=== PATIENT | female | born 1975 | race Caucasian/White ===

== ENCOUNTER → 2016-12-09 | Outpatient (CLI) | payer OTHER | LOC: FIMAGING 13:43 | PROVIDERS: ATTEND Orthopaedic Surgery | DX: S83.511A Sprain of anterior cruciate ligament of right knee, initial encounter (principal); S83.241A Other tear of medial meniscus, current injury, right knee, initial encounter; S83.421A Sprain of lateral collateral ligament of right knee, initial encounter ==

== ENCOUNTER 2016-12-27 05:50 | Day surgery (SDC) | payer OTHER ==
--- NOTE | 2016-12-26 20:04 | GHP ---
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 The knee felt stiff and swollen. She has had episodes of instability. She is a very active individual. She jumps hor ses. She enjoys skiing and yoga. Has a young child. She has had an MRI of the knee that shows a t ear of the ACL. There is a vertical longitudinal tear, posterior horn medial meniscus and a lateral collateral strain. She is an active individual who wishes to continue pivoting activities, so she has elected to undergo an ACL reconstruction. After discussion of graft choices, has chosen the pat ellar tendon allograft. PAST MEDICAL HISTORY: She has no current medical problems. No prior surgeries. She is taking no p rescription medications. ALLERGIES: She has no known drug allergies. SOCIAL HISTORY: She is a nonsmoker. REVIEW OF SYSTEMS: Negative for cardiopulmonary disease. PHYSICAL EXAMINATION: GENERAL: The patient is a well-developed, well-nourished female in no appare nt distress. HEAD AND NECK: Normocephalic, atraumatic. CHEST: Clear. CARDIOVASCULAR: Regular r ate and rhythm. ABDOMEN: Soft. NEUROLOGIC: Alert and oriented x3. EXTREMITIES: Examination of her right knee shows that she is very flexible. She hyperextends her knees. Rimma's test and ant erior drawer test are positive with a very soft end point. She has a good PCL end point. Collatera ls are stable. Mild posterolateral joint line tenderness. Mildly positive lateral Yifan test. She has a small effusion. Neurovascular exam is intact. SKIN: Intact. IMPRESSION: Right knee anterior cruciate ligament rupture, medial meniscal tear. PLAN: Right knee arthroscopy, cartilage work as needed, including potential meniscal repair or trim , ACL reconstruction with patellar tendon allograft and screw fixation. Benefits and risks of surge ry have been reviewed. She has signed her consent form, wishes to proceed. /[id number]/MODL
[2016-12-27] MEDS ORDERED: LIDOCAINE 1% 2 ML INJ ONE (06:19)
[2016-12-27] MEDS ORDERED: LR 1,000 ML IV ONE (06:25)
[2016-12-27] MEDS ORDERED: POLYMYXIN B SULFATE 500,000 UNIT/10 ML SYR IRR ONE (06:50)
[2016-12-27] MEDS ORDERED: BUPIVACAINE 0.5% 30 ML SDV ONE (06:50)
[2016-12-27] MEDS ORDERED: BACITRACIN 50,000 UNITS/10 ML SYR IRR ONE (06:50)
[2016-12-27] MEDS ORDERED: BUPIVACAINE/EPI 0.5% 30 ML SDV ONE (06:50)
[2016-12-27] MEDS ORDERED: CHLORHEXIDINE GLUC HIBICLENS 118 ML BTL TP ONE (07:00)
[2016-12-27] MEDS ORDERED: CEFAZOLIN 2 GM/DEXTR 100 ML IV ONE (07:00)
[2016-12-27] MEDS ORDERED: MIDAZOLAM 2 MG/2 ML VIAL ONE (07:08)
[2016-12-27] MEDS ORDERED: SCOPOLAMINE HYDROBROMIDE 1.5 MG PATCH TD ONE (07:10)
[2016-12-27] MEDS ORDERED: fentaNYL 250 MCG/5 ML INJ ONE (07:14)
[2016-12-27] MEDS ORDERED: PROPOFOL/EMULSION 500 MG/50 ML BOTTLE IV ONE ×2 (07:14→08:43)
[2016-12-27] MEDS ORDERED: KETOROLAC 30 MG/1 ML SDV ONE (09:08)
[2016-12-27] MEDS ORDERED: DEXAMETHASONE 4 MG/ML VIAL ONE (09:08)
[2016-12-27] MEDS ORDERED: morphINE PF 10 MG/10 ML INJ ONE (09:16)
[2016-12-27] MEDS ORDERED: clonIDINE 1 MG/10 ML VIAL EP ONE (09:23)
[2016-12-27] MEDS ORDERED: ROPIVACAINE HCL 150 MG/30 ML INJ ONE (09:23)
[2016-12-27] MEDS ORDERED: HYDROCODONE/APAP 5/325 TAB ONE (10:59)
--- NOTE | 2016-12-27 11:35 | GOP ---
[f rep st] OPERATIVE REPORT DATE OF OPERATION: 12/27/2016 SURGEON: Aj Logan MD CRANE OILER: Melo Charles, [facility], A ANESTHESIOLOGIST: Elias Garay MD PREOPERATIVE DIAGNOSIS: Right knee anterior cruciate ligament rupture, medial meniscal tear, latera l compartment bone contusions. POSTOPERATIVE DIAGNOSIS: Right knee anterior cruciate ligament rupture, medial meniscal tear, later al compartment bone contusions. PROCEDURE PERFORMED: Right knee arthroscopy, medial meniscal repair, ACL reconstruction with patell ar tendon allograft. FINDINGS: An exam under anesthesia demonstrates a positive Rimma's, positive anterior drawer, pos itive pivot shift. On arthroscopy, the patella femoral articulation is intact. In the notch, the A CL fibers are torn, the PCL fibers are intact. In the medial compartment, the articular surfaces ar e intact, and there is a peripheral posterior horn medial meniscal tear. It is quite peripheral, ju st inboard of the meniscocapsular junction. The meniscus is in good shape. It is about a 1.5 cm lo ng or so. It is amenable to repair. The lateral compartment had intact articular meniscal cartilag e. 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 She presents with history, exam, and an MRI consistent with an ACL rupt ure. She does have a peripheral posterior horn medial meniscal tear in a repairable looking zone, a nd there are some minor lateral compartment bone contusions. She is an active individual, wishes to continue pivoting activities, so she has elected to undergo an ACL reconstruction. We have discuss ed graft choice and we will use a patellar tendon allograft. DESCRIPTION OF PROCEDURE: The patient was taken to the operating room, placed supine on the operati ng table, and an adductor block was supplied under ultrasound guidance by Dr. Garay. She was the n placed under general anesthetic with laryngeal mask ventilation. She received 2 g of IV Ancef. A tourniquet was fit high on the right thigh. Right thigh was put in a leg cedeno. The knee was pre pped and draped in usual fashion. Standard arthroscopy portals were used and the entire knee was in spected with the above-noted findings. I prepared the meniscus using a rotary shaver and a meniscal rasp largely on the undersurface; the meniscus could be displaced in board a little bit. I made a posteromedial exposure through about a 3 cm incision, dissected through subcutaneous tissue, and I d issected onto the posterior aspect of the posteromedial knee. I used the zone-specific Arthrex kofi ulas to pass meniscal needles, 2-0 FiberWire, I used 2 vertical mattress sutures passed through the cannula and captured in the posteromedial incision. These nicely reduced the meniscus. They were t ied down with multiple knots. The suture through the surface of the meniscus was flush. This looke d like a good repair. I then did a notchplasty, enlarging the lateral wall and roof of the notch, u ntil the [id number] position was clearly visualized. With my assistant strength coach's help, I prepared an exce llent quality younger male allograft, used about 10 mm slip of tendon, and we fashioned 10 mm bone p lug, each threaded with suture. I made a small incision just medial to the tibial tubercle. I manfred tavares the periosteal surface with an elevator. I used a 3M Guide at 75 degrees to past a guide pin, e merging in the anatomic footprint of the ACL on the tibial plateau. This was then reamed to 10 mm a nd I used a rasp to smooth the back edge of this tunnel. The tunnel looked anatomic. Through a dis darcy lateral femoral incision and the guide set at 120 degrees, I passed a guide pin, emerging immedi ately had of the [id number] position at the junction of the lateral wall and roof of the notch, an d this was reamed to 10 mm. The graft was pulled through the tibia into the femur and secured proxi addie with an 8 x 23 cannulated absorbable screw. With the knee slightly flexed and some tension on the graft, I secured the distal bone plug with a 9 x 23 cannulated absorbable screw, again with exc ellent bone purchase. The graft had appropriate tension, it nicely cleared the lateral wall and nichol f, it allowed full extension, provided a negative Rimma test. All incisions were antibiotic irrig ated. The IT band was closed with 2-0 Monocryl, subcu tissue and all wounds with 3-0 Monocryl, and the skin with 4-0 Prolene interrupted horizontal mattress sutures. I placed 20 cc of 0.5% plain Mar rangel with 10 mg of Duramorph in the joint. The portals were closed with 4-0 Prolene. The wounds w ere dressed with Betadine-soaked Adaptic, 4 x 4's, sterile Webril, and a long-leg MAYANK stocking. The re were no complications. The estimated blood loss was minimal. There were no drains, no specimens , all counts correct, and the patient was taken in stable condition to recovery. My tourniquet time was 70 minutes. My director medical surgical was a medical necessity for graft preparation, leg positioni ng, soft tissue retraction. /[id number]/MODL
== END 2016-12-27 12:20 | disposition home health service (06) ==
LOC: FSGY 05:50
PROVIDERS: ATTEND Orthopaedic Surgery
DX: S83.511D Sprain of anterior cruciate ligament of right knee, subsequent encounter (principal); S83.241D Other tear of medial meniscus, current injury, right knee, subsequent encounter
CPT/HCPCS: C1713; C1762; J0690; J0735; J1100; J1885; J2250; J2274; J2704; J2795; J3010

== ENCOUNTER 2017-10-22 09:12 | Day surgery (SDC) | payer OTHER ==
[2017-10-22] MEDS ORDERED: LIDOCAINE 1% 2 ML INJ ID PRN (09:22)
[2017-10-22] MEDS ORDERED: LR 1,000 ML IV ONE (09:22)
[2017-10-22] MEDS ORDERED: BUPIVACAINE 0.5% 30 ML SDV ONE (09:32)
--- NOTE | 2017-10-22 09:54 | PDANEPAE ---
ANE Past Medical History - Cardiovascular History Hx Hypertension: No Hx Arrhythmias: No Hx Chest Pain: No Hx Coronary Artery / Peripheral Vascular Disease: No Hx CHF / Valvular Disease: No Hx Palpitations: No - Pulmonary History Hx COPD: No Hx Asthma/Reactive Airway Disease: No Hx Recent Upper Respiratory Infection: No Hx Oxygen in Use at Home: No Hx Sleep Apnea: No Sleep Apnea Screening Result - Last Documented: Negative - Neurologic History Hx Cerebrovascular Accident: No Hx Seizures: No Hx Dementia: No - Endocrine History Hx Diabetes: No - Renal History Hx Renal Disorders: No - Liver History Hx Hepatic Disorders: No - Neurological & Psychiatric Hx Hx Neurological and Psychiatric Disorders: No - Cancer History Hx Cancer: No - Congenital Disorder History Hx Congenital Disorders: No - GI History Hx Gastrointestinal Disorders: No - Other Health History Other Health History: FELL OFF HORSE 10/09/2017 RESULTING IN FX - Chronic Pain History Chronic Pain: No - Surgical History Prior Surgeries: RT ACL REPAIR 11/2016 ANE Review of Systems Review of Systems: - Exercise capacity METS (RN): 6 METS ANE Patient History - Allergies Allergies/Adverse Reactions: No Known Allergies Allergy (Unverified 12/13/16 14:06) - Home Medications Home Medications: NK [No Known Home Meds] 12/13/16 [Last Taken Unknown] - Smoking Hx Smoking Status: Never smoked - Family Anes Hx Family Hx Anesthesia Complications: NEG ANE Labs/Vital Signs - Vital Signs Blood Pressure: 116/83 Heart Rate: 79 Respiratory Rate: 16 O2 Sat (%): 97 Height: 162.56 cm Weight: 79.379 kg ANE Physical Exam - Airway Mallampati Score: Class 1 Mouth exam: normal dental/mouth exam - ASA Status ASA Status: I ANE Anesthesia Plan Anesthesia Plan: GA w LMA
[2017-10-22] MEDS ORDERED: SCOPOLAMINE HYDROBROMIDE 1 MG/3 DAYS PATCH TD ONE (09:55)
[2017-10-22] MEDS ORDERED: MIDAZOLAM 2 MG/2 ML VIAL ONE (10:24)
[2017-10-22] MEDS ORDERED: fentaNYL 100 MCG/2 ML INJ ONE ×3 (10:24→12:21)
[2017-10-22] MEDS ORDERED: PROPOFOL 200 MG/20 ML VIAL ONE (10:26)
[2017-10-22] MEDS ORDERED: DEXAMETHASONE 4 MG/ML VIAL ONE (10:28)
[2017-10-22] MEDS ORDERED: LIDOCAINE 2% JELLY 5 ML TUBE ONE (10:28)
[2017-10-22] MEDS ORDERED: ONDANSETRON 4 MG/2 ML VIAL ONE (10:28)
[2017-10-22] MEDS ORDERED: METOCLOPRAMIDE 10 MG/2 ML VIAL ONE (10:28)
--- NOTE | 2017-10-22 10:43 | PDHPUP ---
History & Physical Update H&P update statement: This history and physical update is based on an assessment of the patient which was completed after admission or registration (within 24 hours), but prior to the surgery/procedure.
--- NOTE | 2017-10-22 10:47 | POSTOPPROG ---
Post Op Note Date of Operation: 10/22/17 Surgeon: Juan David Rodarte Anesthesiologist: Anesthesia: LMA Pre-op Diagnosis: Left distal radial fracture Post-op Diagnosis: Same Indication: displaced fracture Procedure: ORIF left distal radial fracture Findings: displaced fracture Inf/Abcess present in the surg proc area at time of surgery?: No Depth: Deep Incisional (Fascial) EBL: Minimal Total fluids administered: 600cc Complications: none
[2017-10-22] MEDS ORDERED: ceFAZolin 1 GM VIAL ONE (11:00)
[2017-10-22] MEDS ORDERED: NALOXONE HCL 0.4 MG/ML INJ IVP PRN (12:15)
[2017-10-22] MEDS ORDERED: ONDANSETRON 4 MG/2 ML VIAL IVP PRN (12:15)
[2017-10-22] MEDS ORDERED: PROMETHAZINE HCL 25 MG/ML INJ IVP PRN (12:15)
[2017-10-22] MEDS ORDERED: LR 500 ML IV PRN (12:15)
--- NOTE | 2017-10-22 12:16 | POSTANESTH ---
Post Anesthetic Evaluation Cardiovascular Status: Normal, Stable Respiratory Status: Normal, Stable Level of Consciousness/Mental Status: Can Participate in Eval Pain Control: Adequate, Prn Tx Ordered Nausea/Vomiting Control: Adequate, Prn Tx Ordered Complications Possibly Related to Anesthesia: None Noted
[2017-10-22] MEDS: fentaNYL 100 MCG/2 ML INJ IVP PRN ×2 (12:22→12:38)
--- NOTE | 2017-10-22 12:34 | GOP ---
[f rep st] OPERATIVE REPORT DATE OF OPERATION: 10/22/2017 SURGEON: Juan David Rodarte MD PREOPERATIVE DIAGNOSIS: Left distal radial fracture. POSTOPERATIVE DIAGNOSIS: Left distal radial fracture. PROCEDURE PERFORMED: Fluoroscopic reduction and plate and screw fixation of left distal radial fract ure. FINDINGS: INDICATIONS: This patient had a distal radial fracture which had 2 articular fragments with a fractu re line going up to the isthmus between the lunate and radial fossa of the distal radius that was not appreciated on initial films but could be seen on films at the time of surgery 1 week later. The fra cture had about 30 degrees of dorsal tilt and associated shortening. Ulnar styloid was intact. It wa s felt that reduction and plate and screw fixation would give her the best post injury function. DESCRIPTION OF PROCEDURE: Under general anesthesia, the patient's left arm was prepped and draped in the usual fashion. Arm tourniquet applied at 250 mmHg. An L-shaped incision was made over the palm ar aspect of the left wrist and distal forearm. Skin and subcutaneous tissue were reflected and palm michael longus and FCR tendons were mobilized and reflected. The interval between the finger flexors and median nerve and the FPL tendon was developed down to the pronator quadratus and that was released l ongitudinally exposing the distal radius. The fracture line was clearly apparent. That was reduced i nto anatomic position using the fluoroscope, and then with the fracture in that position, plate and s crew fixation using a Synthes distal radius plate was performed. This was a 3 hole shaft and 6 hole distal plate. The fixation was solid. The postoperative x-rays assured that all screws were outside the articular surfaces of the distal radioulnar joint and also radiocarpal joint. The wound was irr igated profusely with body temperature saline. 0.5% plain Marcaine was used to block median, ulnar, a nd radial nerves at the junction of mid and distal 3rd forearm, and then the pronator quadratus was c losed with 4-0 PDS. The palmar fascia of the forearm was closed with 4-0 PDS. 0.5% plain Marcaine w as instilled in the operative area and then skin closed with horizontal mattress sutures of 5-0 Prole ne. A bulky soft pressure dressing was applied followed by a palmar based fiberglass splint held in place with an Rienaldo bandage. She tolerated the procedure well. There were no complications. She was brought from the operating room to recovery room in good condition. Given detailed postoperative ins tructions prior to discharge. A prescription for [place] and Keflex was provided. She had been given 1 g of Ancef prior to commencement of surgery. Followup arrangements in the office for about 1 week p ostop for dressing and suture removal, and cast application for 3 additional weeks. /[id number]/MODL
[2017-10-22] MEDS ORDERED: HYDROCODONE/APAP 5/325 TAB ONE ×2 (12:44→13:07)
[2017-10-22] MEDS: HYDROCODONE/APAP 5/325 TAB PO PRN ×2 (12:54→13:08)
[2017-10-22 14:16] VITALS: BP 113/74; PULSE 81; RESP 18; TEMP 98.1; O2SAT 95
[2017-10-25] MEDS ORDERED: PATCH REMOVAL 1 EA PATCH TD SCH (09:56)
== END 2017-10-22 14:00 | disposition home or self-care (01) ==
LOC: FSGY 09:12
PROVIDERS: ATTEND Specialist
DX: S52.552A Other extraarticular fracture of lower end of left radius, initial encounter for closed fracture (principal); W17.89XA Other fall from one level to another, initial encounter; Y93.52 Activity, horseback riding
CPT/HCPCS: C1713; J0690; J1100; J2250; J2405; J2704; J2765; J3010